=== PATIENT | male | born 1955 | race African-American/Black ===

== ENCOUNTER 2016-12-27 16:41 | Emergency (ER) | payer OTHER ==
[~2016-12-27] VITALS: Ht 177.8 cm; Wt 100.0 kg
[~2016-12-27 16:41] MED LIST: AMLO5TAB66 PO; ASPI-1093 PO; BUPR100 PO; ERGO500044 PO; HYDR25TA PO; LISI-660 PO; METO25 PO; OMEP20CA10 PO; QUET25TA PO; TAMS0.4C32 PO
[2016-12-27] MEDS ORDERED: LIDOCAINE HCL/PF 1% 2 ML VIAL IM ONE (18:45)
[2016-12-27] MEDS ORDERED: CefTRIAXone SODIUM 1 GM/VIAL IM ONE (18:45)
[2016-12-27] MEDS ORDERED: HYDROCODONE/ACETAMINOPHEN 5-325 MG TABLET PO ONE (18:45)
[2016-12-27] MEDS ORDERED: LIDOCAINE HCL BUFFERED 1% 20 ML VIAL INJ ONE (19:00)
[2016-12-27] MEDS ORDERED: POVIDONE-IODINE 10% 15 ML SOLUTION UD TP ONE (19:00)
[2016-12-27] MEDS ORDERED: BACITRACIN 0.9 GM PACKET OINTMENT TP ONE (20:15)
[2016-12-27 20:32] VITALS: BP 135/88
== END 2016-12-27 20:39 | disposition home or self-care (01) ==
LOC: EMS 16:43
DX: L05.01 Pilonidal cyst with abscess (principal); L03.317 Cellulitis of buttock; I10 Essential (primary) hypertension
CPT/HCPCS: 10080; 96372; 99284; J0696; J3490 ×2

== ENCOUNTER 2016-12-29 18:00 | Emergency (ER) | payer OTHER ==
[~2016-12-29] VITALS: Ht 177.8 cm; Wt 106.8 kg
[2016-12-29 20:45] VITALS: BP 115/99
== END 2016-12-29 20:52 | disposition home or self-care (01) ==
LOC: EMS 18:03
DX: Z48.00 Encounter for change or removal of nonsurgical wound dressing (principal); I10 Essential (primary) hypertension; Z79.82 Long term (current) use of aspirin
CPT/HCPCS: 99282

== ENCOUNTER 2017-07-20 22:06 | Emergency (ER) | payer OTHER ==
[~2017-07-20] VITALS: Ht 175.3 cm; Wt 111.5 kg
[~2017-07-20 22:06] MED LIST changes: -ASPI-1093 PO; +ASPI-1182 PO
[2017-07-21 00:28] LABS: APPEARANCE,URINE CLEAR (CLEAR); GLUCOSE, URINE (UA) NEGATIVE (NEGATIVE); KETONES,URINE NEGATIVE (NEGATIVE); LEUKOCYTE ESTERASE ,URINE NEGATIVE (NEGATIVE); OCCULT BLOOD,URINE NEGATIVE (NEGATIVE); PROTEIN,URINE NEGATIVE (NEGATIVE)
[2017-07-21 00:31] LABS: ADD UA MICROSCOPIC NO
[2017-07-21 01:04] VITALS: BP 139/88
== END 2017-07-21 01:44 | disposition home or self-care (01) ==
LOC: EMS 22:07
DX: J40 Bronchitis, not specified as acute or chronic (principal); M79.1 Myalgia; I10 Essential (primary) hypertension; Z79.82 Long term (current) use of aspirin
CPT/HCPCS: 99285

== ENCOUNTER 2017-08-04 15:10 | Emergency (ER) | payer OTHER ==
[~2017-08-04] VITALS: Ht 177.8 cm; Wt 113.6 kg
[2017-08-04 16:06] VITALS: BP 121/67
[2017-08-04] MEDS ORDERED: BUPIVACAINE HCL/PF 0.25% 10 ML VIAL INJ ONE (16:45)
[2017-08-04] MEDS ORDERED: OxyCODONE HCL/ACETAMINOPHEN 5-325 MG TABLET PO ONE (16:45)
[2017-08-04] MEDS ORDERED: POVIDONE-IODINE 10% 15 ML SOLUTION UD TP ONE (16:45)
== END 2017-08-04 18:40 | disposition home or self-care (01) ==
LOC: EMS 15:11
DX: L02.31 Cutaneous abscess of buttock (principal); I10 Essential (primary) hypertension
CPT/HCPCS: 10060; 99284; J3490; 99283

== ENCOUNTER 2018-01-26 16:09 | Emergency (ER) | payer OTHER ==
[~2018-01-26] VITALS: Ht 177.8 cm; Wt 113.6 kg
[2018-01-26] MEDS ORDERED: NAPR-58 PO (16:28)
[2018-01-26] MEDS ORDERED: MELO-106 PO (16:28)
[2018-01-26] MEDS ORDERED: RANI150T7 PO (16:28)
[2018-01-26] MEDS ORDERED: FINA5TAB41 PO (16:28)
[2018-01-26] MEDS ORDERED: GABA-531 PO (16:28)
[2018-01-26] MEDS ORDERED: BACL10TA PO (16:28)
[2018-01-26] MEDS ORDERED: METHOCARBAMOL 500 MG TABLET PO ONE (18:30)
[2018-01-26] MEDS ORDERED: KETOROLAC TROMETHAMINE 10 MG TABLET PO ONE (18:30)
[2018-01-26 18:58] VITALS: BP 132/68
== END 2018-01-26 18:56 | disposition home or self-care (01) ==
LOC: EMS 16:10
DX: S46.001A Unspecified injury of muscle(s) and tendon(s) of the rotator cuff of right shoulder, initial encounter (principal); X58.XXXA Exposure to other specified factors, initial encounter; Y93.89 Activity, other specified; Y92.89 Other specified places as the place of occurrence of the external cause; Y99.8 Other external cause status
CPT/HCPCS: 99283

== ENCOUNTER 2018-12-26 13:39 | Emergency (ER) | payer OTHER ==
[~2018-12-26] VITALS: Ht 175.3 cm; Wt 118.2 kg
[~2018-12-26 13:39] MED LIST changes: +AMLO-511 PO; -AMLO5TAB66 PO; -ASPI-1182 PO; +BACL10TA PO; -BUPR100 PO; +BUSP5TAB20 PO; +FINA5TAB41 PO; +GABA-531 PO; -HYDR25TA PO; -LISI-660 PO; +MELO-106 PO; -METO25 PO; +METO50 PO; -OMEP20CA10 PO; -QUET25TA PO; +RANI150T7 PO; +TRAZ150 PO; +VENL-68 PO
[2018-12-26] MEDS: LIDOCAINE 5% TRANSDERMAL PATCH TD ONE (14:49)
[2018-12-26] MEDS: KETOROLAC TROMETHAMINE 30 MG/ML VIAL IM ONE (14:49)
[2018-12-26 17:42] VITALS: BP 138/71
== END 2018-12-26 17:43 | disposition home or self-care (01) ==
LOC: EMS 13:39
DX: M25.562 Pain in left knee (principal); M19.90 Unspecified osteoarthritis, unspecified site; I10 Essential (primary) hypertension; F32.9 Major depressive disorder, single episode, unspecified
CPT/HCPCS: 73562; 73700; 96372; 99284; J1885

== ENCOUNTER 2019-03-03 17:12 | Emergency (ER) | payer OTHER ==
[~2019-03-03] VITALS: Ht 175.3 cm; Wt 110.9 kg
[~2019-03-03 17:12] MED LIST changes: -AMLO-511 PO; +AMLO5TAB9 PO
[2019-03-03] MEDS ORDERED: KETOROLAC TROMETHAMINE 60 MG/2 ML VIAL IM ONE (19:30)
[2019-03-03 21:31] VITALS: BP 129/76
== END 2019-03-03 22:00 | disposition left against medical advice (07) ==
LOC: EMS 17:14
DX: S20.212A Contusion of left front wall of thorax, initial encounter (principal); I10 Essential (primary) hypertension; F32.9 Major depressive disorder, single episode, unspecified; M19.90 Unspecified osteoarthritis, unspecified site; W01.0XXA Fall on same level from slipping, tripping and stumbling without subsequent striking against object, initial encounter; Y93.01 Activity, walking, marching and hiking; Y92.89 Other specified places as the place of occurrence of the external cause; Y99.8 Other external cause status
CPT/HCPCS: 71101; 96372; 99283; J1885

== ENCOUNTER 2019-07-30 13:48 | Emergency (ER) | payer MEDICARE, OTHER ==
[~2019-07-30] VITALS: Ht 175.3 cm; Wt 106.8 kg
[~2019-07-30 13:48] MED LIST changes: -BACL10TA PO; -BUSP5TAB20 PO; -ERGO500044 PO; -FINA5TAB41 PO; -GABA-531 PO; -MELO-106 PO; -METO50 PO; -RANI150T7 PO; -TAMS0.4C32 PO; -TRAZ150 PO; -VENL-68 PO
[2019-07-30] MEDS ORDERED: HYDR25TA PO (13:59)
[2019-07-30] MEDS ORDERED: TAMS-13 PO (13:59)
[2019-07-30 16:00] VITALS: BP 159/86
== END 2019-07-30 16:02 | disposition home or self-care (01) ==
LOC: EMS 13:49
DX: M79.645 Pain in left finger(s) (principal); I10 Essential (primary) hypertension; M19.90 Unspecified osteoarthritis, unspecified site; F32.9 Major depressive disorder, single episode, unspecified; Z79.899 Other long term (current) drug therapy; W49.04XA Ring or other jewelry causing external constriction, initial encounter; Y93.89 Activity, other specified; Y92.89 Other specified places as the place of occurrence of the external cause; Y99.8 Other external cause status

== ENCOUNTER 2020-08-29 10:37 | Emergency (ER) | payer MEDICARE, OTHER ==
[~2020-08-29] VITALS: Ht 177.8 cm; Wt 118.2 kg
[~2020-08-29 10:37] MED LIST changes: +AMLO-258 PO; -AMLO5TAB9 PO; +DOCU-275 PO; +TAMS-13 PO
[2020-08-29 12:05] VITALS: BP 133/69
== END 2020-08-29 12:50 | disposition home or self-care (01) ==
LOC: EMS 10:37
DX: Z46.6 Encounter for fitting and adjustment of urinary device (principal); U07.1 COVID-19; F12.90 Cannabis use, unspecified, uncomplicated; N40.0 Benign prostatic hyperplasia without lower urinary tract symptoms; F32.9 Major depressive disorder, single episode, unspecified; I10 Essential (primary) hypertension
CPT/HCPCS: Z7502

== ENCOUNTER 2020-08-30 11:02 | Emergency (ER) | payer MEDICARE, OTHER ==
[~2020-08-30] VITALS: Ht 175.3 cm; Wt 113.6 kg
[2020-08-30 11:10] VITALS: BP_DIAS 85
[2020-08-30] MEDS ORDERED: OxyCODONE HCL/ACETAMINOPHEN 5-325 MG TABLET PO ONE (13:00)
[2020-08-30 13:50] LABS: BILIRUBIN,URINE NEGATIVE (NEGATIVE); GLUCOSE, URINE (UA) NEGATIVE (NEGATIVE); KETONES,URINE NEGATIVE (NEGATIVE); LEUKOCYTE ESTERASE ,URINE NEGATIVE (NEGATIVE); NITRATE,URINE NEGATIVE (NEGATIVE); OCCULT BLOOD,URINE SMALL (NEGATIVE); PH,URINE 5.5 (5.0-8.0); PROTEIN,URINE TRACE (NEGATIVE); UROBILINOGEN,URINE 0.2 mg/dL (<=1.0)
[2020-08-30 14:04] LABS: APPEARANCE,URINE HAZY (CLEAR); BACTERIA,URINE None Seen /HPF (None Seen); WBC,URINE None Seen /HPF (0-5)
[2020-08-30 14:50] VITALS: BP_SYST 144
== END 2020-08-30 15:28 | disposition home or self-care (01) ==
LOC: EMS 11:05
DX: N40.0 Benign prostatic hyperplasia without lower urinary tract symptoms (principal); R33.8 Other retention of urine; I10 Essential (primary) hypertension; F32.9 Major depressive disorder, single episode, unspecified; F12.90 Cannabis use, unspecified, uncomplicated
CPT/HCPCS: 51702; 81001-TC; Z7502; Z7610

== ENCOUNTER 2020-08-31 05:41 | Emergency (ER) | payer MEDICARE, OTHER ==
[~2020-08-31] VITALS: Ht 175.3 cm; Wt 117.7 kg
[2020-08-31 10:19] LABS: GLUCOSE,POINT OF CARE 96 MG/DL (70-110)
[2020-08-31] MEDS: TraMADol HCL 50 MG TABLET PO ONE ×2 (10:53→10:58)
[2020-08-31 15:01] VITALS: BP 130/81
== END 2020-08-31 15:13 | disposition home or self-care (01) ==
LOC: EMS 05:47
DX: R33.9 Retention of urine, unspecified (principal); R10.30 Lower abdominal pain, unspecified; F32.9 Major depressive disorder, single episode, unspecified; I10 Essential (primary) hypertension; F12.90 Cannabis use, unspecified, uncomplicated
CPT/HCPCS: 51702